=== PATIENT | male | born 1980 | race Caucasian/White ===

== ENCOUNTER 2021-06-11 01:17 | Emergency (ER) | payer BC ==
[2021-06-11] MEDS ORDERED: Ondansetron 4 MG/2 ML SDV IVPUSH ONE (01:37)
[2021-06-11] MEDS ORDERED: Ketorolac 30 MG/ML SDV IVPUSH STA (01:37)
[2021-06-11] MEDS ORDERED: HYDROmorphone 1 MG/ML Syringe IVPUSH ONE (01:37)
[2021-06-11] MEDS ORDERED: Tamsulosin 0.4 MG Cap.ER PO ONE (01:37)
--- NOTE | 2021-06-11 01:43 | EDM.PDOC ---
ED HPI GENERAL MEDICAL PROBLEM - General Chief Complaint: Abdominal Pain Stated Complaint: LOWER RIGHT SIDE ABDOMINAL PAIN EXTREME Time Seen by Provider: 06/11/21 01:29 Source of Information: Reports: Patient, Family () History Limitations: Reports: No Limitations - History of Present Illness INITIAL COMMENTS - FREE TEXT/NARRATIVE: Mr. Cassidy is a very pleasant 41-year-old gentleman who now presents the ED stating that he developed sudden-onset right flank pain radiating to his right lower quadrant around 21:30 last night, while driving home. He describes the pain as sharp and crampy in character. He states that it is constant and progressively getting worse. He has not identified any modifiers. He has had associated nausea, but no vomiting. No recent fever, urinary symptoms, or diarrhea. He denies incurring any back or abdominal injury. No prior similar symptoms. The patient did not take any [id number] or home remedies prior to coming to the ED. Here in the ED, the patient's initial BP is found to be modestly elevated at 155/105, otherwise, the patient is hemodynamically stable, afebrile, saturating 98% on room air. He appears to be relatively comfortable, in no acute distress. Prior to 21:30 last night, the patient denies having a recent fever, chills, sore throat, ear pain, nasal or sinus congestion, cough, dyspnea, chest pain, palpitations, nausea, vomiting, constipation, diarrhea, abdominal pain, urinary symptoms, recent weight gain or weight loss, recent bloody bowel movements or black bowel movements, recent joint aches, headaches, or rashes. The patient does not have a PCP. Right Abdomen Pain Score (Numeric/FACES): 10 - Related Data Allergies Allergy/AdvReac Type Severity Reaction Status Date / Time Penicillins Allergy Other Verified 06/11/21 01:33 Home Meds: Home Meds . [No Known Home Meds] 06/11/21 [History] Past Medical History - Past Surgical History HEENT Surgical History: Reports: Oral Surgery (dental extractions) Social & Family History - Tobacco Use Tobacco Use Status *Q: Current Every Day Tobacco User Tobacco Use Within Last Twelve Months: Smokeless Tobacco (Chews 2 cans/week) Years of Tobacco use: 25 Packs/Tins Daily: 0.3 Packs/Tins Daily Comment: Down from 1 ppd Tobacco Use Comment: Started smoking 1996 - Alcohol Use Alcohol Use History: Yes Alcohol Use Frequency: Socially (occasionally to excess) - Recreational Drug Use Recreational Drug Use: No - Living Situation & Occupation Living situation: Reports: , with Spouse Occupation: Employed (mechanic welder truck driver) ED ROS GENERAL - Review of Systems Review Of Systems: Comprehensive ROS is negative, except as noted in HPI. ED EXAM, RENAL/ - Physical Exam Exam: See Below Exam Limited By: No Limitations General Appearance: Alert, WD/WN, No Apparent Distress Eye Exam: Bilateral Eye: EOMI, Normal Inspection Ears: Normal External Exam, Hearing Grossly Normal Nose: Normal Inspection Throat/Mouth: Normal Inspection, Normal Lips, Normal Voice, No Airway Compromise Head: Atraumatic, Normocephalic Neck: Normal Inspection, Full Range of Motion Respiratory/Chest: No Respiratory Distress, Lungs Clear, Normal Breath Sounds, No Accessory Muscle Use Cardiovascular: Normal Peripheral Pulses, Regular Rate, Rhythm, No Edema, No Gallop, No JVD, No Murmur, No Rub GI/Abdominal: Normal Bowel Sounds, Soft, Non-Tender (including the RLQ), No Organomegaly, No Distention, No Abnormal Bruit, No Mass Back Exam: Normal Inspection, Full Range of Motion. No: CVA Tenderness (L), CVA Tenderness (R) Extremities: Normal Inspection, Normal Range of Motion, No Pedal Edema, Normal Capillary Refill Neurological: Alert, Oriented, Normal Cognition, No Motor/Sensory Deficits Psychiatric: Normal Affect Skin Exam: Warm, Dry, Intact, Normal Color, No Rash Course - Vital Signs Last Recorded V/S: Last Vital Signs Temp 35.9 C L 06/11/21 01:23 Pulse 60 06/11/21 01:23 Resp 18 06/11/21 01:23 BP 142/91 H 06/11/21 02:13 Pulse Ox 98 06/11/21 01:23 - Orders/Labs/Meds Orders: Active Orders 24 hr Category Date Time Status Abdomen Pelvis wo Cont [CT] Stat Exams 06/11/21 01:36 Taken Labs: Laboratory Tests 06/11/21 Range/Units 02:42 Urine Color Yellow (Yellow) Urine Appearance Slt cloudy H (Clear) Urine pH 5.5 (5.0-8.0) Ur Specific [place] > or = 1.030 (1.005-1.030) Urine Protein Trace H (Negative) Urine Glucose (UA) Negative (Negative) Urine Ketones Negative (Negative) Urine Occult Blood Negative (Negative) Urine Nitrite Negative (Negative) Urine Bilirubin Negative (Negative) Urine Urobilinogen 0.2 (0.2-1.0) Ur Leukocyte Esterase Negative (Negative) U Hyaline Cast (Auto) 0-5 (0-5) /lpf Urine RBC 0-5 (0-5) /hpf Urine WBC 0-5 (0-5) /hpf Ur Epithelial Cells Not seen (0-5) /hpf Urine Bacteria Few (FEW) /hpf Urine Mucus Moderate H (FEW) /hpf Meds: Medications Discontinued Medications Generic Name Dose Route Start Last Admin Trade Name Freq PRN Reason Stop Dose Admin Hydromorphone HCl 1 mg 06/11/21 01:37 06/11/21 01:47 Hydromorphone 1 Mg/Ml Syringe IVPUSH 06/11/21 01:38 1 mg ONETIME ONE Administration Sodium Chloride 1,000 mls @ 150 mls/hr 06/11/21 01:45 06/11/21 01:45 Normal Saline IV 150 mls/hr ASDIRECTED ANTONY Administration Ketorolac Tromethamine 30 mg 06/11/21 01:37 06/11/21 01:48 Ketorolac 30 Mg/Ml Sdv IVPUSH 06/11/21 01:38 30 mg ONETIME STA Administration Ondansetron HCl 4 mg 06/11/21 01:37 06/11/21 01:45 Ondansetron 4 Mg/2 Ml Sdv IVPUSH 06/11/21 01:38 4 mg ONETIME ONE Administration Tamsulosin HCl 0.4 mg 06/11/21 01:37 06/11/21 01:49 Tamsulosin 0.4 Mg Cap.Er PO 06/11/21 01:38 0.4 mg ONETIME ONE Administration - Re-Assessments/Exams Free Text/Narrative Re-Assessment/Exam: 06/11/21 01:38 As above, the patient developed sudden-onset right flank pain radiating to his right lower quadrant around 4 hours ago, associated with nausea. No recent fever or urinary symptoms. His physical exam is unremarkable, including no tend erness to his right lower quadrant, and no right CVA tenderness. I suspect that the patient is suffering from a right-sided ureterolith. I have ordered a urinalysis and CT of the abdomen and pelvis without contrast to evaluate. In the meantime, the patient will be given IV Dilaudid, oral tamsulosin, IV fluid, IV Toradol, and IV Zofran. 06/11/21 03:22 The patient's urinalysis is unremarkable. CT of the abdomen and pelvis without contrast is read by [facility] as "No cause for acute pain is identified." 06/11/21 03:27 Test results discussed with the patient and his . His symptoms have res olved, and he was sleeping. As above, today's work-up is unremarkable, and does not explain the cause of his pain, although it does rule out significant pathology. It would seem that the patient's pain was due to a muscle spasm. I will discharge him home. Departure - Departure Time of Disposition: 03:28 Disposition: Home, Self-Care 01 Condition: Good Clinical Impression: Right lower quadrant abdominal pain of unknown etiology, Right flank pain - Discharge Information *PRESCRIPTION DRUG MONITORING PROGRAM REVIEWED*: Not Applicable *COPY OF PRESCRIPTION DRUG MONITORING REPORT IN PATIENT ANA: Not Applicable Instructions: Flank Pain, Adult, [id number] Referrals: PCP,Kevin [Primary Care Provider] - Jillian Todd NP [Nurse Practitioner] - Forms: ED Department Discharge Additional Instructions: You were seen in the emergency room after developing sudden-onset lower right abdominal pain and right flank pain. Work-up in the ER included a urinalysis and a CT of your abdomen and pelvis. Your entire work-up was unremarkable. You do not have a urinary tract infec tion, and the CT scan was negative, finding no stone, nor any other explanation for your pain. If your symptoms persist, please follow-up with Jillian Todd NP, or one of the other providers in the clinic, for further evaluation. If any other problems, please do not hesitate to return to the ER. Sepsis Event Note (ED) - Evaluation Sepsis Screening Result: No Definite Risk - Focused Exam Vital Signs: Vital Signs Temp Pulse Resp BP Pulse Ox 06/11/21 02:13 142/91 H 06/11/21 01:23 35.9 C L 60 18 155/105 H 98 - My Orders Last 24 Hours: My Active Orders 06/11/21 01:36 Abdomen Pelvis wo Cont [CT] Stat - Assessment/Plan Last 24 Hours: My Active Orders 06/11/21 01:36 Abdomen Pelvis wo Cont [CT] Stat
[2021-06-11] MEDS ORDERED: Sodium Chloride 0.9% 1,000 ML IV SCH (01:45)
--- NOTE | 2021-06-11 15:45 | CT ---
CT abdomen and pelvis Technique: Multiple axial sections were obtained from above the dome of the diaphragm inferiorly through the pubic symphysis. Intravenous and oral contrast were not utilized. Study has been performed as a ureteral stone protocol. Comparison: No prior abdominal imaging is available. Findings: Kidneys show no abnormal calcifications. No ureteral dilatation or ureteral calculus is seen. No bladder calculi are seen. Visualized lung bases show nothing acute. Noncontrast appearance of the liver and spleen show no focal abnormality. Small amount of accessory splenic tissue is seen medial to the spleen. Adrenal glands show no nodule. No abnormality is appreciated within the pancreas. Gallbladder contains no calcified gallstones. Abdominal aorta shows no aneurysm. No retroperitoneal adenopathy or mesenteric abnormalities are seen. Appendix is seen which is normal in size. No pelvic mass or adenopathy is seen. No free fluid or inflammatory change is appreciated. Bone window settings were reviewed which show no acute osseous abnormality. Impression: 1. No renal calculi, ureteral dilatation or ureteral calculus is seen. 2. Nothing acute is appreciated on noncontrast CT study of the abdomen and pelvis. Diagnostic code #1 I agree with preliminary report from [facility], finalized on 06/11/21, 4:20 AM CDT, code 1
== END 2021-06-11 03:39 | disposition home or self-care (01) ==
LOC: JD.ED 01:17
DX: R10.31 Right lower quadrant pain (principal); Z72.0 Tobacco use; Z88.0 Allergy status to penicillin
CPT/HCPCS: 74176; 81001; 96374; 96375; 99284; A9270; J1170; J1885; J2405; J7030

== ENCOUNTER 2021-06-12 11:41 | Observation (INO) | payer BC ==
[2021-06-12] MEDS ORDERED: Ondansetron 4 MG/2 ML SDV IVPUSH ONE (12:29)
[2021-06-12] MEDS ORDERED: HYDROmorphone 0.5 MG/0.5 ML Syringe IVPUSH ONE (12:29)
[2021-06-12] MEDS ORDERED: Docusate Sodium 100 MG Cap PO PRN (13:24)
[2021-06-12] MEDS ORDERED: Ondansetron 4 MG Tab.DIS PO PRN (13:24)
[2021-06-12] MEDS ORDERED: Temazepam 15 MG Cap PO PRN (13:24)
[2021-06-12] MEDS ORDERED: Sodium Chloride 0.9% 10 ML Syringe FLUSH PRN (13:24)
[2021-06-12] MEDS ORDERED: HYDROmorphone 0.5 MG/0.5 ML Syringe IVPUSH PRN (13:24)
[2021-06-12] MEDS ORDERED: oxyCODONE 5 MG Tab PO PRN (13:24)
--- NOTE | 2021-06-12 13:32 | EDM.PDOC ---
ED HPI GENERAL MEDICAL PROBLEM - General Chief Complaint: Genitourinary Problem Stated Complaint: BLOOD CLOT IN KIDNEY, SENT FROM [facility] Time Seen by Provider: 06/12/21 11:58 Source of Information: Reports: Patient, RN Notes Reviewed History Limitations: Reports: No Limitations - History of Present Illness INITIAL COMMENTS - FREE TEXT/NARRATIVE: Patient is a 41-year-old male [facility] for evaluation and treatment of renal infarct. He has been experiencing right-sided flank pain since Saturday. He was seen in the ER here yesterday and had CT scan without contrast completed and showed no evidence of kidney stone. Pain continued, therefore he went to the [facility] clinic. They did CT scan with IV contrast and it showed evidence of renal infarct. He had work-up including blood work urinalysis and CT scan done at [facility]. He denies any chronic medical conditions. He is however smoker. Right Flank Pain Score (Numeric/FACES): 7 Headache Pain Score (Numeric/FACES): 8 - Related Data Allergies Allergy/AdvReac Type Severity Reaction Status Date / Time bee venom protein (honey bee) Allergy Hives Verified 06/12/21 16:36 Penicillins Allergy Other Verified 06/12/21 11:57 Home Meds: Home Meds Apixaban [Eliquis] 5 mg PO BID #60 tablet 06/14/21 [Rx] Past Medical History - Past Surgical History HEENT Surgical History: Reports: Oral Surgery Social & Family History - Tobacco Use Tobacco Use Status *Q: Current Every Day Tobacco User Years of Tobacco use: 20 Packs/Tins Daily: 0.5 - Caffeine Use Caffeine Use: Reports: Coffee, Energy Drinks - Living Situation & Occupation Living situation: Reports: , with Spouse Occupation: Employed (regional driver) ED ROS GENERAL - Review of Systems Review Of Systems: See Below Constitutional: Reports: No Symptoms. Denies: Fever, Chills HEENT: Reports: No Symptoms Respiratory: Reports: No Symptoms Cardiovascular: Reports: No Symptoms Endocrine: Reports: No Symptoms GI/Abdominal: Reports: Nausea, Vomiting. Denies: Abdominal Pain : Reports: Flank Pain. Denies: Dysuria Musculoskeletal: Reports: No Symptoms Skin: Reports: No Symptoms Neurological: Reports: No Symptoms Psychiatric: Reports: No Symptoms Hematologic/Lymphatic: Reports: No Symptoms Immunologic: Reports: No Symptoms ED EXAM, RENAL/ - Physical Exam Exam: See Below General Appearance: Alert, WD/WN, Mild Distress Respiratory/Chest: No Respiratory Distress, Lungs Clear, Normal Breath Sounds, No Accessory Muscle Use, Chest Non-Tender Cardiovascular: Normal Peripheral Pulses, Regular Rate, Rhythm, No Edema, No Gallop, No JVD, No Murmur, No Rub GI/Abdominal: Normal Bowel Sounds, Soft, Non-Tender, No Organomegaly, No Distention, No Abnormal Bruit, No Mass Back Exam: Normal Inspection, Full Range of Motion, CVA Tenderness (R). No: CVA Tenderness (L) Neurological: Alert, Oriented, CN II-XII Intact, Normal Cognition, Normal Gait, Normal Reflexes, No Motor/Sensory Deficits Psychiatric: Normal Affect, Normal Mood #1 Interpretation EKG Date: 06/12/21 Time: 12:42 Rhythm: NSR Rate (Beats/Min): 81 [place]: Normal P-Wave: Present QRS: Normal ST-T: Normal QT: Normal EKG Interpretation Comments: q waves borderline V1 and V2 Course - Vital Signs Last Recorded V/S: Last Vital Signs Temp 99.0 F 06/14/21 08:36 Pulse 67 06/14/21 08:36 Resp 14 06/14/21 08:36 BP 119/69 06/14/21 08:36 Pulse Ox 96 06/14/21 08:36 - Orders/Labs/Meds Labs: Laboratory Tests 06/12/21 Range/Units 13:10 PT 10.7 (9.7-12.0) SECONDS INR 1.00 APTT 29.5 (21.7-31.4) SECONDS Meds: Medications Discontinued Medications Generic Name Dose Route Start Last Admin Trade Name Freq PRN Reason Stop Dose Admin Acetaminophen 650 mg 06/13/21 08:35 06/14/21 04:17 Acetaminophen 325 Mg Tab PO 650 mg Q6H PRN Administration Pain Apixaban 5 mg 06/12/21 13:45 06/14/21 08:41 Apixaban 5 Mg Tab PO 5 mg BID ANTONY Administration Aspirin 325 mg 06/12/21 15:00 06/14/21 08:41 Aspirin 325 Mg Tab.Ec PO 325 mg DAILY ANTONY Administration Docusate Sodium 100 mg 06/12/21 13:24 Docusate Sodium 100 Mg Cap PO BID PRN Constipation Hydromorphone HCl 0.5 mg 06/12/21 12:29 06/12/21 12:47 Hydromorphone 0.5 Mg/0.5 Ml Syringe IVPUSH 06/12/21 12:30 0.5 mg ONETIME ONE Administration Hydromorphone HCl 0.5 mg 06/12/21 13:24 Hydromorphone 0.5 Mg/0.5 Ml Syringe IVPUSH Q2H PRN Pain (severe 7-10) Lactated Ringer's 1,000 mls @ 500 mls/hr 06/13/21 09:23 06/13/21 10:57 Ringers, Lactated IV 06/13/21 11:22 500 mls/hr .BOLUS ONE Administration Lactated Ringer's 1,000 mls @ 150 mls/hr 06/13/21 14:45 06/14/21 04:20 Ringers, Lactated IV 150 mls/hr ASDIRECTED ANTONY Administration Lisinopril 5 mg 06/13/21 09:00 06/14/21 08:42 Lisinopril 5 Mg Tab PO Not Given DAILY ANTONY Ondansetron HCl 4 mg 06/12/21 12:29 06/12/21 12:46 Ondansetron 4 Mg/2 Ml Sdv IVPUSH 06/12/21 12:30 4 mg ONETIME ONE Administration Ondansetron HCl 4 mg 06/12/21 13:24 Ondansetron 4 Mg Tab.Dis PO Q4H PRN nausea, able to take PO Oxycodone HCl 5 mg 06/12/21 13:24 06/12/21 23:59 Oxycodone 5 Mg Tab PO 5 mg Q4H PRN Administration Pain (moderate 4-6) Sodium Chloride 10 ml 06/12/21 13:24 Sodium Chloride 0.9% 10 Ml Syringe FLUSH ASDIRECTED PRN Keep Vein Open Temazepam 15 mg 06/12/21 13:24 06/12/21 23:59 Temazepam 15 Mg Cap PO 15 mg BEDTIME PRN Administration Sleep - Re-Assessments/Exams Free Text/Narrative Re-Assessment/Exam: Patient is a 41-year-old male presenting to the emergency department from [facility] for evaluation and treatment of renal infarct. CT scan completed at [facility] showed evidence of infarction. Urinalysis showed blood but no evidence of infection. I have ordered Dilaudid for pain and Zofran for nausea. Will call and speak with nephrology to get their recommendations. 06/12/21 13:00 Case was discussed with transmission mechanic, Dr. Wade. Since symptoms have been occurring since Saturday, treatment would be anticoagulation. He also recommends blood test to check for clotting disorders, echocardiogram, and EKG. I have ordered an EKG. Case was discussed with Dr. Owens. He will admit the patient for pain management, anticoagulation and echocardiogram. Departure - Departure Time of Disposition: 13:00 Disposition: Admitted As Inpatient 64 Condition: Good Clinical Impression: Hematuria, microscopic, Ischemia and infarction of kidney - Discharge Information Sepsis Event Note (ED) - Evaluation Sepsis Screening Result: No Definite Risk
--- NOTE | 2021-06-12 13:41 | PCM.HP.2 ---
H&P History of Present Illness - General Date of Service: 06/12/21 Admit Problem/Dx: Admission Diagnosis/Problem Admission Diagnosis/Problem Renal infarction Source of Information: Patient, Family History Limitations: Reports: No Limitations ([id number]) - History of Present Illness Initial Comments - Free Text/Narative: The patient is an otherwise healthy 41-year-old gentleman who had presented to the [facility] with 2 days worth of right flank pain for further evaluation. The patient was noted to have a subacute infarct of his right kidney. This was read as an ischemic infarct involving right kidney most pronounced in the upper pole and mid kidney with prominent cortical nonenhancement which may pertain to cortical necrosis. The patient at that time had a urinalysis that did show microhematuria. The patient then was referred to the emergency department for further evaluation and treatment. The patient says that he did have some nausea associated with this. The patient also reported fever and chills as well. The pain had improved with the use of Dilaudid. The patient does not have a history of hypertension, prior thrombosis or cardiac issues. The patient is not taking any medications currently. He is using tobacco however. Onset of Symptoms: Reports: Gradual Duration of Symptoms: Reports: Day(s): Location: Reports: Back. Denies: Radiates to Quality: Reports: Ache, Stabbing Severity: Moderate Improves with: Reports: Medication Worsens with: Reports: Movement Associated Symptoms: Reports: Nausea/Vomiting Right Flank Pain Score (Numeric/FACES): 7 - Related Data Allergies/Adverse Reactions: Allergies Allergy/AdvReac Type Severity Reaction Status Date / Time Penicillins Allergy Other Verified 06/12/21 11:57 Home Medications: Home Meds . [No Known Home Meds] 06/11/21 [History] Past Medical History - Past Health History Medical/Surgical History: Denies Medical/Surgical History - Past Surgical History HEENT Surgical History: Reports: Oral Surgery Social & Family History - Tobacco Use Tobacco Use Status *Q: Current Every Day Tobacco User Years of Tobacco use: 20 Packs/Tins Daily: 0.5 - Caffeine Use Caffeine Use: Reports: Coffee, Energy Drinks - Living Situation & Occupation Living situation: Reports: , with Spouse Occupation: Employed (highway truck driver) H&P Review of Systems - Review of Systems: Review Of Systems: See Below General: Reports: Fever, Chills HEENT: Reports: No Symptoms Pulmonary: Reports: No Symptoms Cardiovascular: Reports: No Symptoms Gastrointestinal: Reports: Nausea (Resolved now) Genitourinary: Denies: Hematuria Musculoskeletal: Reports: Back Pain (And right flank) Skin: Reports: No Symptoms Psychiatric: Reports: No Symptoms Neurological: Reports: No Symptoms Hematologic/Lymphatic: Reports: No Symptoms Immunologic: Reports: No Symptoms Exam - Exam Exam: See Below - Vital Signs Vital Signs: Last Vital Signs Temp 37.6 C 06/12/21 11:55 Pulse 74 06/12/21 11:55 Resp 18 06/12/21 11:55 BP 150/88 H 06/12/21 11:55 Pulse Ox 100 06/12/21 11:55 Weight: 95.254 kg - Exam Quality Assessment: No: Supplemental Oxygen, DVT Prophylaxis General: Alert, Oriented, Cooperative, Mild Distress HEENT: Conjunctiva Clear, EACs Clear, EOMI, Hearing Intact, Mucosa Moist & [place], Posterior Pharynx Clear, PERRLA Neck: Supple, Trachea Midline, Full Range of Motion. No: Lymphadenopathy Lungs: Clear to Auscultation, Normal Respiratory Effort Cardiovascular: Regular Rate, Regular Rhythm, Normal S1, Normal S2 GI/Abdominal Exam: Normal Bowel Sounds, Soft, Non-Tender, No Distention. No: Guarding, Rigid, Rebound (Male) Exam: Deferred Rectal (Males) Exam: Deferred Back Exam: Normal Inspection, Full Range of Motion, CVA Tenderness (R) Extremities: Normal Inspection, Normal Range of Motion, No Pedal Edema Skin: Warm, Dry, Intact Neurological: Cranial Nerves Intact, Reflexes Equal Bilateral, Strength Equal Bilateral, Normal Speech, Normal Tone Neuro Extensive - Mental Status: Alert, Oriented x3, Normal Cognition, Memory Intact Psychiatric: Alert, Normal Affect, Normal Mood Sepsis Event Note - Evaluation Sepsis Screening Result: No Definite Risk - Focused Exam Vital Signs: Vital Signs Temp Pulse Resp BP Pulse Ox 06/12/21 11:55 37.6 C 74 18 150/88 H 100 - Problem List (1) Ischemia and infarction of kidney SNOMED Code(s): 06276387, 83192837, 249212402 ICD Code: N28.0 - ISCHEMIA AND INFARCTION OF KIDNEY Status: Acute Priority: High Current Visit: Yes Problem Details: Subacute (2) Hematuria, microscopic SNOMED Code(s): 157965542 ICD Code: R31.29 - OTHER MICROSCOPIC HEMATURIA Status: Acute Priority: High Current Visit: Yes (3) Right lower quadrant abdominal pain of unknown etiology SNOMED Code(s): 662188023, 002670125 ICD Code: R10.31 - RIGHT LOWER QUADRANT PAIN Status: Acute Priority: High Current Visit: Yes (4) Right flank pain SNOMED Code(s): 690466557 ICD Code: R10.9 - UNSPECIFIED ABDOMINAL PAIN Status: Acute Priority: High Current Visit: Yes (5) Tobacco abuse SNOMED Code(s): 119498988 ICD Code: Z72.0 - TOBACCO USE Status: Chronic Priority: Medium Current Visit: Yes Problem List Initiated/Reviewed/Updated: Yes Orders Last 24hrs: Active Orders 24 hr Category Date Time Status Patient Status [ADT] Routine ADT 06/12/21 13:24 Ordered EKG Documentation Completion [RC] STAT Care 06/12/21 12:37 Active Oxygen Therapy [RC] PRN Care 06/12/21 13:24 Ordered Up ad Dalila [RC] ASDIRECTED Care 06/12/21 13:24 Ordered VTE/DVT Education [RC] PER UNIT ROUTINE Care 06/12/21 13:24 Ordered Vital Signs [RC] Q4H Care 06/12/21 13:24 Ordered Regular Diet [DIET] Diet 06/12/21 Dinner Ordered Echo 2D wo Cont [US] Stat Exams 06/12/21 13:24 Ordered BASIC METABOLIC PANEL,BMP [CHEM] AM Lab 06/13/21 05:11 Ordered CBC WITH AUTO DIFF [HEME] AM Lab 06/13/21 05:11 Ordered CORONAVIRUS COVID-19 TONIE [MOLEC] Stat Lab 06/12/21 13:35 Ordered FACTOR V LEIDEN MUTATION [REF] Routine Lab 06/12/21 13:10 Received INR,PT,PROTHROMBIN TIME [COAG] Stat Lab 06/12/21 13:10 Received MAGNESIUM [CHEM] AM Lab 06/13/21 05:11 Ordered PROTEIN C-FUNCTIONAL [REF] Routine Lab 06/12/21 13:10 Received PROTEIN S-FUNCTIONAL [REF] Routine Lab 06/12/21 13:10 Received PTT,PARTIAL THROMBOPLSTIN TIME [COAG] Stat Lab 06/12/21 13:10 Received Apixaban [Eliquis] Med 06/12/21 13:45 Ordered 5 mg PO BID Aspirin [Ecotrin] Med 06/12/21 13:45 Ordered 325 mg PO DAILY Docusate Sodium [Colace] Med 06/12/21 13:24 Ordered 100 mg PO BID PRN HYDROmorphone [Dilaudid] Med 06/12/21 13:24 Ordered 0.5 mg IVPUSH Q2H PRN Ondansetron [Zofran ODT] Med 06/12/21 13:24 Ordered 4 mg PO Q4H PRN Sodium Chloride 0.9% [Saline Flush] Med 06/12/21 13:24 Ordered 10 ml FLUSH ASDIRECTED PRN Temazepam [Restoril] Med 06/12/21 13:24 Ordered 15 mg PO BEDTIME PRN lisinopriL [Prinivil] Med 06/13/21 09:00 Ordered 5 mg PO DAILY oxyCODONE Med 06/12/21 13:24 Ordered 5 mg PO Q4H PRN Saline Lock Insert [OM.PC] Routine Oth 06/12/21 13:24 Ordered Resuscitation Status Routine Resus Stat 06/12/21 13:24 Ordered Medication Orders Apixaban (Apixaban 5 Mg Tab) 5 mg PO BID ANTONY Aspirin (Aspirin 325 Mg Tab.Ec) 325 mg PO DAILY [facility] Docusate Sodium (Docusate Sodium 100 Mg Cap) 100 mg PO BID PRN PRN Reason: Constipation Hydromorphone HCl (Hydromorphone 0.5 Mg/0.5 Ml Syringe) 0.5 mg IVPUSH Q2H PRN PRN Reason: Pain (severe 7-10) Lisinopril (Lisinopril 5 Mg Tab) 5 mg PO DAILY [facility] Ondansetron HCl (Ondansetron 4 Mg Tab.Dis) 4 mg PO Q4H PRN PRN Reason: nausea, able to take PO Oxycodone HCl (Oxycodone 5 Mg Tab) 5 mg PO Q4H PRN PRN Reason: Pain (moderate 4-6) Sodium Chloride (Sodium Chloride 0.9% 10 Ml Syringe) 10 ml FLUSH ASDIRECTED PRN PRN Reason: Keep Vein Open Temazepam (Temazepam 15 Mg Cap) 15 mg PO BEDTIME PRN PRN Reason: Sleep Assessment/Plan Comment:: The patient is a 41-year-old gentleman who has been admitted to observation secondary to ischemic renal infarction. ER provider had discussed the case with forestry aid technician in [place] and because this likely happened 2 days ago the patient should be admitted to observation for further testing. Hypercoagulable testing has been completed through the emergency department. The patient will have a 2D echocardiogram ordered. I have also ordered antiplatelet therapy with aspirin 325 mg p.o. daily and Eliquis 5 mg p.o. twice daily. Therefore DVT coagulation will not be needed. The patient's blood pressure was elevated and is as a result of this he was started on lisinopril 5 mg p.o. daily. The patient will have pain control with the use of Dilaudid 0.5 mg IV every 2 hours as needed for severe pain. The patient has been encouraged to ambulate. I have ordered repeat laboratory testing for the morning. I do not feel that he needs antibiotics at this time. He was also offered a nicotine patch for his smoking/smokeless tobacco use and he had declined. The patient should be appropriate for discharge after testing has been completed. The patient will need to have a primary care physician. The patient will also need to follow-up with nephrology. - Mortality Measure Prognosis:: Good
[2021-06-12] MEDS: Apixaban 5 MG Tab PO SCH ×2 (16:00→20:24)
[2021-06-12] MEDS: Aspirin 325 MG Tab.EC PO SCH (16:00)
[2021-06-13] MEDS: Aspirin 325 MG Tab.EC PO SCH (08:31)
[2021-06-13] MEDS: Apixaban 5 MG Tab PO SCH ×2 (08:31→20:19)
[2021-06-13] MEDS: Lisinopril 5 MG Tab PO SCH (08:32)
[2021-06-13] MEDS: Acetaminophen 325 MG Tab PO PRN ×2 (08:58→20:19)
[2021-06-13] MEDS ORDERED: Lactated Ringers 1,000 ML IV ONE (09:23)
--- NOTE | 2021-06-13 11:10 | CR ---
Chest: Portable view of the chest was obtained. Comparison: No prior chest imaging is available. Minimal atelectasis is seen within the left base. Lungs otherwise are clear with no acute parenchymal change. Heart size and mediastinum appears within normal limits. No acute osseous abnormality is appreciated. Impression: 1. Slight atelectasis within the left lung base. 2. Nothing acute is seen on portable chest x-ray. Diagnostic code #2
--- NOTE | 2021-06-13 14:39 | PCM.PN ---
- General Info Date of Service: 06/13/21 Admission Dx/Problem (Free Text): Admission Diagnosis/Problem Admission Diagnosis/Problem Renal infarction Subjective Update: Patient had fever this AM with elevated WBC Denies cough or sob denies chest pain endorses headache - Patient Data Vitals - Most Recent: Last Vital Signs Temp 98.8 F 06/13/21 12:22 Pulse 72 06/13/21 12:22 Resp 20 06/13/21 12:22 BP 129/72 06/13/21 12:22 Pulse Ox 96 06/13/21 12:22 Weight - Most Recent: 208 lb 1.6 oz I&O - Last 24 Hours: Intake & Output 06/12/21 06/13/21 06/13/21 22:59 06:59 14:59 Intake Total 240 1200 Output Total 950 Balance 240 250 Lab Results Last 24 Hours: Laboratory Results - last 24 hr 06/13/21 06/13/21 06/13/21 Range/Units 05:55 05:55 09:56 WBC 13.21 H (4.23-9.07) K/mm3 RBC 4.28 L (4.63-6.08) M/mm3 Hgb 13.3 L (13.7-17.5) gm/dl Hct 39.2 L (40.1-51.0) % MCV 91.6 (79.0-92.2) fl MCH 31.1 (25.7-32.2) pg MCHC 33.9 (32.2-35.5) g/dl RDW Std Deviation 42.2 (35.1-43.9) fL Plt Count 226 (163-337) K/mm3 MPV 9.6 (9.4-12.3) fl Neut % (Auto) 75.6 H (34.0-67.9) % Lymph % (Auto) 11.1 L (21.8-53.1) % [place] % (Auto) 12.7 H (5.3-12.2) % Eos % (Auto) 0.2 L (0.8-7.0) Baso % (Auto) 0.2 (0.1-1.2) % Neut # (Auto) 10.01 H (1.78-5.38) K/mm3 Lymph # (Auto) 1.46 (1.32-3.57) K/mm3 [place] # (Auto) 1.68 H (0.30-0.82) K/mm3 Eos # (Auto) 0.02 L (0.04-0.54) K/mm3 Baso # (Auto) 0.02 (0.01-0.08) K/mm3 Manual Slide Review Normal smear Sodium 136 (136-145) mEq/L Potassium 4.1 (3.5-5.1) mEq/L Chloride 101 (98-107) mEq/L Carbon Dioxide 26 (21-32) mEq/L Anion Gap 13.1 (5-15) BUN 9 (7-18) mg/dL Creatinine 1.2 (0.7-1.3) mg/dL Est Cr Clr Drug Dosing 81.96 mL/min Estimated GFR (MDRD) > 60 (>60) mL/min BUN/Creatinine Ratio 7.5 L (14-18) Glucose 110 H (70-99) mg/dL Lactic Acid 0.5 (0.4-2.0) mmol/L Calcium 8.9 (8.5-10.1) mg/dL Magnesium 2.1 (1.8-2.4) mg/dL Med Orders - Current: Current Medications Acetaminophen (Acetaminophen 325 Mg Tab) 650 mg PO Q6H PRN PRN Reason: Pain Last Admin: 06/13/21 08:58 Dose: 650 mg Documented by: Apixaban (Apixaban 5 Mg Tab) 5 mg PO BID [facility] Last Admin: 06/13/21 08:31 Dose: 5 mg Documented by: Aspirin (Aspirin 325 Mg Tab.Ec) 325 mg PO DAILY [facility] Last Admin: 06/13/21 08:31 Dose: 325 mg Documented by: Docusate Sodium (Docusate Sodium 100 Mg Cap) 100 mg PO BID PRN PRN Reason: Constipation Hydromorphone HCl (Hydromorphone 0.5 Mg/0.5 Ml Syringe) 0.5 mg IVPUSH Q2H PRN PRN Reason: Pain (severe 7-10) Lactated Ringer's (Ringers, Lactated) 1,000 mls @ 150 mls/hr IV ASDIRECTED [facility] Lisinopril (Lisinopril 5 Mg Tab) 5 mg PO DAILY [facility] Last Admin: 06/13/21 08:32 Dose: Not Given Documented by: Ondansetron HCl (Ondansetron 4 Mg Tab.Dis) 4 mg PO Q4H PRN PRN Reason: nausea, able to take PO Oxycodone HCl (Oxycodone 5 Mg Tab) 5 mg PO Q4H PRN PRN Reason: Pain (moderate 4-6) Last Admin: 06/12/21 23:59 Dose: 5 mg Documented by: Sodium Chloride (Sodium Chloride 0.9% 10 Ml Syringe) 10 ml FLUSH ASDIRECTED PRN PRN Reason: Keep Vein Open Temazepam (Temazepam 15 Mg Cap) 15 mg PO BEDTIME PRN PRN Reason: Sleep Last Admin: 06/12/21 23:59 Dose: 15 mg Documented by: Discontinued Medications Hydromorphone HCl (Hydromorphone 0.5 Mg/0.5 Ml Syringe) 0.5 mg IVPUSH ONETIME ONE Stop: 06/12/21 12:30 Last Admin: 06/12/21 12:47 Dose: 0.5 mg Documented by: Lactated Ringer's (Ringers, Lactated) 1,000 mls @ 500 mls/hr IV .BOLUS ONE Stop: 06/13/21 11:22 Last Admin: 06/13/21 10:57 Dose: 500 mls/hr Documented by: Ondansetron HCl (Ondansetron 4 Mg/2 Ml Sdv) 4 mg IVPUSH ONETIME ONE Stop: 06/12/21 12:30 Last Admin: 06/12/21 12:46 Dose: 4 mg Documented by: - Exam Physical Findings Comments:: Gen: mild distress HEENT NCAT EOMI MMM CV: RRR normal s1 s2 Lungs; CTAB Abd: soft, nt, nd Neuro: AOX3; nonfocal screening exam MSK: age appropriate muscle mass - Patient Data Lab Results Last 24 hrs: Laboratory Results - last 24 hr 06/13/21 06/13/21 06/13/21 Range/Units 05:55 05:55 09:56 WBC 13.21 H (4.23-9.07) K/mm3 RBC 4.28 L (4.63-6.08) M/mm3 Hgb 13.3 L (13.7-17.5) gm/dl Hct 39.2 L (40.1-51.0) % MCV 91.6 (79.0-92.2) fl MCH 31.1 (25.7-32.2) pg MCHC 33.9 (32.2-35.5) g/dl RDW Std Deviation 42.2 (35.1-43.9) fL Plt Count 226 (163-337) K/mm3 MPV 9.6 (9.4-12.3) fl Neut % (Auto) 75.6 H (34.0-67.9) % Lymph % (Auto) 11.1 L (21.8-53.1) % [place] % (Auto) 12.7 H (5.3-12.2) % Eos % (Auto) 0.2 L (0.8-7.0) Baso % (Auto) 0.2 (0.1-1.2) % Neut # (Auto) 10.01 H (1.78-5.38) K/mm3 Lymph # (Auto) 1.46 (1.32-3.57) K/mm3 [place] # (Auto) 1.68 H (0.30-0.82) K/mm3 Eos # (Auto) 0.02 L (0.04-0.54) K/mm3 Baso # (Auto) 0.02 (0.01-0.08) K/mm3 Manual Slide Review Normal smear Sodium 136 (136-145) mEq/L Potassium 4.1 (3.5-5.1) mEq/L Chloride 101 (98-107) mEq/L Carbon Dioxide 26 (21-32) mEq/L Anion Gap 13.1 (5-15) BUN 9 (7-18) mg/dL Creatinine 1.2 (0.7-1.3) mg/dL Est Cr Clr Drug Dosing 81.96 mL/min Estimated GFR (MDRD) > 60 (>60) mL/min BUN/Creatinine Ratio 7.5 L (14-18) Glucose 110 H (70-99) mg/dL Lactic Acid 0.5 (0.4-2.0) mmol/L Calcium 8.9 (8.5-10.1) mg/dL Magnesium 2.1 (1.8-2.4) mg/dL Result Diagrams: 06/13/21 05:55 06/13/21 05:55 Sepsis Event Note - Evaluation Sepsis Screening Result: No Definite Risk - Focused Exam Vital Signs: Vital Signs Temp Pulse Resp BP Pulse Ox 06/13/21 12:22 98.8 F 72 20 129/72 96 06/13/21 08:32 107/81 06/13/21 08:15 98.4 F 84 20 107/81 94 L 06/13/21 04:56 100.0 F 93 20 113/77 95 - Problem List Review Problem List Initiated/Reviewed/Updated: Yes - My Orders Last 24 Hours: My Active Orders 06/13/21 08:35 Acetaminophen [TylenoL] 650 mg PO Q6H PRN 06/13/21 09:19 Blood Culture x2 Reflex Set [OM.PC] Stat 06/13/21 09:21 UA RFX MAGDIEL AND CULT IF INDIC [URIN] Stat 06/13/21 09:49 BLOOD CULTURE [MREF] Stat 06/13/21 09:56 BLOOD CULTURE [MREF] Stat 06/13/21 14:31 UA RFX MAGDIEL AND CULT IF INDIC [URIN] Routine 06/13/21 14:45 Lactated Ringers @ 150 MLS/HR(1000ml Bag) Lactated Ringers [Ringers, Lactated] 1,000 ml IV ASDIRECTED - Assessment Assessment:: This is a 41M who presented with acute renal infarct. he was started on eliquis and admitted 1. Acute renal infarct 2. SIRS syndrome rule out sepsis Plan -continue anticoagulation -check lactate, cxr, UA -IVF bolus -anticipated discharge tomorrow -monitor off antibiotics - Plan Plan:: The patient is a 41-year-old gentleman who has been admitted to observation secondary to ischemic renal infarction. ER provider had discussed the case with power plant electrician in [place] and because this likely happened 2 days ago the patient should be admitted to observation for further testing. Hypercoagulable testing has been completed through the emergency department. The patient will have a 2D echocardiogram ordered. I have also ordered antiplatelet therapy with aspirin 325 mg p.o. daily and Eliquis 5 mg p.o. twice daily. Therefore DVT coagulation will not be needed. The patient's blood pressure was elevated and is as a result of this he was started on lisinopril 5 mg p.o. daily. The patient will have pain control with the use of Dilaudid 0.5 mg IV every 2 hours as needed for severe pain. The patient has been encouraged to ambulate. I have ordered repeat laboratory testing for the morning. I do not feel that he needs antibiotics at this time. He was also offered a nicotine patch for his smok ing/smokeless tobacco use and he had declined. The patient should be appropriate for discharge after testing has been completed. The patient will need to have a primary care physician. The patient will also need to follow-up with nephrology.
[2021-06-13] MEDS: Lactated Ringers 1,000 ML IV SCH ×2 (15:19→21:34)
[2021-06-14] MEDS: Acetaminophen 325 MG Tab PO PRN (04:17)
[2021-06-14] MEDS: Lactated Ringers 1,000 ML IV SCH (04:20)
[2021-06-14] MEDS: Apixaban 5 MG Tab PO SCH (08:41)
[2021-06-14] MEDS: Aspirin 325 MG Tab.EC PO SCH (08:41)
[2021-06-14] MEDS: Lisinopril 5 MG Tab PO SCH (08:42)
--- NOTE | 2021-06-14 17:21 | PCM.DCSUM1 ---
Discharge Summary - Hospital Course HPI Initial Comments: HPI/Hospital Course This is a 41M who presented for outpatient clinic for evaluation of right lower quadrant abdominal pain. In Urgent Care the patient underwent CT AP which showed findings concerning ischemic infarct involving the right kidney most pronounced in the upper pole and mid kidney with prominent cortical nonenhancement with may portent to cortical necrosis. The patient underwent urine analysis. on admission his case was discussed with Nephrology. Based on nephrology recommendations the patient was started on eliquis. On day of discharge the patient was pain free. He tolerated eliquis. His case was re-discussed with nephrology. He will need anticoagulation treatment for a minimum of 6 months. He will need close follow up with Nephrology and his PCP. I have recommended that he follow up with his PCP in 3-5 days post hospital discharge as he will need follow up on thrombophilia testing. Risks and benefits of eliquis were discussed with patient and he agreed with treatment plan Discharge Exam Gen: no acute distress HEENT: NCAT EOMI MMM Neck: Supple CV: RRR normal s1 s2 Lungs: CTAB Abd: soft, nt, nd Neuro: AOX3, nonfocal screening exam MSK: age appropriate muscle mass Diagnosis: Stroke: No - Discharge Data Discharge Date: 06/14/21 Discharge Disposition: Home, Self-Care 01 Condition: Good - Referral to Home Health Primary Care Physician: PCP None - Patient Summary/Data Recommended Follow-up Testing/Procedures: PCP 3-5 days post hospital discharge follow up with Nephrology appointments to be arranged with case management - Patient Instructions Diet: Regular Diet as Tolerated Activity: As Tolerated Notify Provider of: Fever, Increased Pain, Nausea and/or Vomiting - Discharge Plan *PRESCRIPTION DRUG MONITORING PROGRAM REVIEWED*: Not Applicable *COPY OF PRESCRIPTION DRUG MONITORING REPORT IN PATIENT ANA: Not Applicable Prescriptions/Med Rec: Apixaban [Eliquis] 5 mg PO BID #60 tablet Home Medications: Home Meds Apixaban [Eliquis] 5 mg PO BID #60 tablet 06/14/21 [Rx] Oxygen Therapy Mode: Room Air Patient Handouts: Apixaban oral tablets - Discharge Summary/Plan Comment DC Time >30 min.: Yes - Patient Data Vitals - Most Recent: Last Vital Signs Temp 99.0 F 06/14/21 08:36 Pulse 67 06/14/21 08:36 Resp 14 06/14/21 08:36 BP 119/69 06/14/21 08:36 Pulse Ox 96 06/14/21 08:36 Weight - Most Recent: 210 lb 3.2 oz I&O - Last 24 hours: Intake & Output 06/14/21 06/14/21 06/14/21 06:59 14:59 22:59 Intake Total 2000 480 Output Total 1960 Balance 40 480 Lab Results - Last 24 hrs: Laboratory Results - last 24 hr 06/14/21 06/14/21 Range/Units 06:15 06:15 WBC 11.99 H (4.23-9.07) K/mm3 RBC 3.92 L (4.63-6.08) M/mm3 Hgb 12.1 L (13.7-17.5) gm/dl Hct 35.9 L (40.1-51.0) % MCV 91.6 (79.0-92.2) fl MCH 30.9 (25.7-32.2) pg MCHC 33.7 (32.2-35.5) g/dl RDW Std Deviation 41.2 (35.1-43.9) fL Plt Count 225 (163-337) K/mm3 MPV 9.4 (9.4-12.3) fl Sodium 141 (136-145) mEq/L Potassium 4.0 (3.5-5.1) mEq/L Chloride 106 (98-107) mEq/L Carbon Dioxide 25 (21-32) mEq/L Anion Gap 14.0 (5-15) BUN 10 (7-18) mg/dL Creatinine 1.1 (0.7-1.3) mg/dL Est Cr Clr Drug Dosing 89.41 mL/min Estimated GFR (MDRD) > 60 (>60) mL/min BUN/Creatinine Ratio 9.1 L (14-18) Glucose 117 H (70-99) mg/dL Calcium 8.9 (8.5-10.1) mg/dL Med Orders - Current: Current Medications Discontinued Medications Acetaminophen (Acetaminophen 325 Mg Tab) 650 mg PO Q6H PRN PRN Reason: Pain Last Admin: 06/14/21 04:17 Dose: 650 mg Documented by: Apixaban (Apixaban 5 Mg Tab) 5 mg PO BID [facility] Last Admin: 06/14/21 08:41 Dose: 5 mg Documented by: Aspirin (Aspirin 325 Mg Tab.Ec) 325 mg PO DAILY [facility] Last Admin: 06/14/21 08:41 Dose: 325 mg Documented by: Docusate Sodium (Docusate Sodium 100 Mg Cap) 100 mg PO BID PRN PRN Reason: Constipation Hydromorphone HCl (Hydromorphone 0.5 Mg/0.5 Ml Syringe) 0.5 mg IVPUSH ONETIME ONE Stop: 06/12/21 12:30 Last Admin: 06/12/21 12:47 Dose: 0.5 mg Documented by: Hydromorphone HCl (Hydromorphone 0.5 Mg/0.5 Ml Syringe) 0.5 mg IVPUSH Q2H PRN PRN Reason: Pain (severe 7-10) Lactated Ringer's (Ringers, Lactated) 1,000 mls @ 500 mls/hr IV .BOLUS ONE Stop: 06/13/21 11:22 Last Admin: 06/13/21 10:57 Dose: 500 mls/hr Documented by: Lactated Ringer's (Ringers, Lactated) 1,000 mls @ 150 mls/hr IV ASDIRECTED [facility] Last Admin: 06/14/21 04:20 Dose: 150 mls/hr Documented by: Lisinopril (Lisinopril 5 Mg Tab) 5 mg PO DAILY [facility] Last Admin: 06/14/21 08:42 Dose: Not Given Documented by: Ondansetron HCl (Ondansetron 4 Mg/2 Ml Sdv) 4 mg IVPUSH ONETIME ONE Stop: 06/12/21 12:30 Last Admin: 06/12/21 12:46 Dose: 4 mg Documented by: Ondansetron HCl (Ondansetron 4 Mg Tab.Dis) 4 mg PO Q4H PRN PRN Reason: nausea, able to take PO Oxycodone HCl (Oxycodone 5 Mg Tab) 5 mg PO Q4H PRN PRN Reason: Pain (moderate 4-6) Last Admin: 06/12/21 23:59 Dose: 5 mg Documented by: Sodium Chloride (Sodium Chloride 0.9% 10 Ml Syringe) 10 ml FLUSH ASDIRECTED PRN PRN Reason: Keep Vein Open Temazepam (Temazepam 15 Mg Cap) 15 mg PO BEDTIME PRN PRN Reason: Sleep Last Admin: 06/12/21 23:59 Dose: 15 mg Documented by:
== END 2021-06-14 11:45 | disposition home or self-care (01) ==
LOC: JD.ED 11:41 → JD.MS 13:24
PROVIDERS: ADMIT Internal Medicine; ATTEND Internal Medicine
DX: N28.0 Ischemia and infarction of kidney (principal); Z88.0 Allergy status to penicillin; F17.210 Nicotine dependence, cigarettes, uncomplicated; R31.29 Other microscopic hematuria; Z20.822 Contact with and (suspected) exposure to COVID-19
CPT/HCPCS: 36415; 71045; 71045-26; 80048; 81001; 81241; 83605; 83735; 85025; 85027; 85303; 85306; 85610; 85730; 87040; 93005; 93010; 93306; 96374; 96375; 99217; 99219; 99225; 99284; 99285-25; A9270-GY; G0378; J1170; J2405; J7120; U0002